=== PATIENT | male | born 2000 | race African-American/Black ===

== ENCOUNTER 2021-01-18 20:14 | Emergency (ER) | payer SELFPAY | END 2021-01-18 21:27 | disposition home or self-care (01) | LOC: ERS 20:14 | DX: J45.901 Unspecified asthma with (acute) exacerbation (principal); R94.31 Abnormal electrocardiogram [ECG] [EKG] | CPT/HCPCS: 93005; 94640; J7620 ==

== ENCOUNTER 2024-04-06 00:36 | Emergency (ER) | payer OTHER, SELFPAY ==
[2024-04-06] MEDS ORDERED: methylPREDNISolone Sod Succ/PF 125 MG/2 ML VIAL ONE (00:51)
== END 2024-04-06 01:55 | disposition home or self-care (01) ==
LOC: ERS 00:36
DX: J45.901 Unspecified asthma with (acute) exacerbation (principal)
CPT/HCPCS: 96374; J2919

== ENCOUNTER 2024-05-07 19:35 | Emergency (ER) | payer OTHER ==
[2024-05-07] MEDS ORDERED: Dexamethasone 10 MG/ML VIAL ONE (20:00)
[2024-05-07] MEDS ORDERED: Ipratropium/Albuterol 3 ML NEB ONE ×3 (20:00→21:16)
[2024-05-07] MEDS ORDERED: Albuterol 2.5 MG (0.5 mL) NEB ONE (21:16)
[2024-05-07] MEDS ORDERED: Magnesium 2 GM/50 ML BAG (IN WATER) ONE (21:23)
== END 2024-05-07 22:37 | disposition home or self-care (01) ==
LOC: ERS 19:35
DX: J45.901 Unspecified asthma with (acute) exacerbation (principal)
CPT/HCPCS: 71045; 87428; 93005; 96374; 96375; J1100; J3475; J7611; J7620